=== PATIENT | female | born 1945 | race Caucasian/White ===

== ENCOUNTER → 2018-03-07 | Outpatient (CLI) | payer OTHER ==
[~2018-03-07] MED LIST: BACL10; CALCA400CH; CRINONE1.125 GM; CYAN500; CYAN500 PO; CYCL10; EPIN.3I IM; EX-LAX; Ester-C 500 MG1 EACH; Hair, Skin & N1 EACH; LEVSOD75; MULVITB&C PO; MULVITMINF PO; SENN187; SIME40L PO; SIME80CH; TIZANIDINE HCL2 MG; [UNRECOGNIZED DRUG - OTHER]
[2018-03-09 14:08] LABS: HPV 16 Negative (Negative); HPV 18 Negative (Negative); HPV OTHER HR TYPES Negative (Negative)
== END | disposition home or self-care (01) ==
LOC: LAB SHORT 15:29 → LAB 15:29
PROVIDERS: Nurse Practitioner Women's Health
DX: Z12.72 Encounter for screening for malignant neoplasm of vagina (principal); Z91.89 Other specified personal risk factors, not elsewhere classified
CPT/HCPCS: 87624; G0123

== ENCOUNTER → 2018-03-24 | Outpatient (CLI) | payer OTHER ==
[2018-03-24 14:44] LABS: Creatinine Urine 55.9 mg/dL (27.00-270.00); Protein, Urine Quantitative 6.5 mg/dL (0.0-11.9)
[2018-03-24 14:47] LABS: Microalbumin, Urine Quant. 5.49 mg/L (0.000-20.000)
[2018-03-28 17:06] LABS: METANEPH/CREAT RATIO 0.5 (0.0-1.0)
== END | disposition home or self-care (01) ==
LOC: LAB EV 08:15 → EDSTATUS 10:56
PROVIDERS: Internal Medicine Nephrology
DX: N18.2 Chronic kidney disease, stage 2 (mild) (principal); D63.1 Anemia in chronic kidney disease; R73.09 Other abnormal glucose; N25.81 Secondary hyperparathyroidism of renal origin; E55.9 Vitamin D deficiency, unspecified; E78.00 Pure hypercholesterolemia, unspecified; R76.9 Abnormal immunological finding in serum, unspecified; R94.5 Abnormal results of liver function studies; R94.6 Abnormal results of thyroid function studies
CPT/HCPCS: 81050; 82043; 82570; 83835; 84156

== ENCOUNTER → 2019-02-07 | Outpatient (CLI) | payer OTHER ==
[2019-02-07 16:41] LABS: Bilirubin, Urine Neg (Neg); Blood, Urine Neg (Neg); Glucose Qualitative, Urine Neg (Neg); Ketones, Urine Neg (Neg); Leukocyte Esterase, Urine Neg (Neg); Nitrite, Urine Neg (Neg); Protein, Urine Neg (Neg); Specific Gravity, Urine 1.015 (1.003-1.022); Urobilinogen, Urine NORM (Normal)
[2019-02-07 16:56] LABS: Appearance, Urine Clear (Clear); Color, Urine Yellow (P-Yellow)
== END | disposition home or self-care (01) ==
LOC: LAB EV 10:35 → LAB SHORT 10:35
PROVIDERS: Internal Medicine Nephrology
DX: N39.0 Urinary tract infection, site not specified (principal)
CPT/HCPCS: 81003; 87086

== ENCOUNTER → 2019-06-06 | Outpatient (CLI) | payer OTHER | END | disposition home or self-care (01) | LOC: LAB SHORT 18:51 → LAB EV 18:51 | DX: L03.011 Cellulitis of right finger (principal) | CPT/HCPCS: 87070; 87075; 87076; 87205 ==

== ENCOUNTER → 2020-03-10 | Outpatient (CLI) | payer OTHER ==
[2020-03-10 15:16] LABS: Albumin, Blood 3.8 g/dL (3.4-5.0); Anion Gap 7 mmol/L (6-16); Blood Urea Nitrogen 16 mg/dL (8-24); Bun/Creatinine Ratio 18.2 (12.0-20.0); CO2, Blood 28 mmol/L (21-32); Calcium, Blood 9.4 mg/dL (8.5-10.1); Chloride, Blood 103 mmol/L (98-108); Creatinine, Blood 0.88 mg/dL (0.40-1.00); Glomerular Filtration Rate >60 (60-); Glucose, Blood 106 mg/dL (70-99); Phosphorus, Blood 3.9 mg/dL (2.5-4.9); Potassium, Blood 4.4 mmol/L (3.5-5.5); Sodium, Blood 138 mmol/L (136-145)
[2020-03-10 17:46] LABS: Percent Saturation 20.7 % (15.0-50.0)
== END | disposition home or self-care (01) ==
LOC: LAB SHORT 14:45 → LAB 14:45
PROVIDERS: Internal Medicine Nephrology
DX: N18.31 Chronic kidney disease, stage 3a (principal); D63.1 Anemia in chronic kidney disease; D52.8 Other folate deficiency anemias; D50.9 Iron deficiency anemia, unspecified
CPT/HCPCS: 36415; 80069; 82728; 83540; 83550; 85018

== ENCOUNTER → 2020-09-28 | Outpatient (CLI) | payer OTHER | END | disposition home or self-care (01) | LOC: LAB SHORT 17:44 → LAB EV 17:44 | DX: M25.572 Pain in left ankle and joints of left foot (principal) | CPT/HCPCS: 87070; 87205 ==

== ENCOUNTER 2020-10-29 02:27 | Day surgery (SDC) | payer OTHER | END 2020-10-29 22:51 | disposition home or self-care (01) | LOC: WOUND 02:27 | DX: L97.322 Non-pressure chronic ulcer of left ankle with fat layer exposed (principal); L03.90 Cellulitis, unspecified; L84 Corns and callosities; I74.3 Embolism and thrombosis of arteries of the lower extremities; I73.89 Other specified peripheral vascular diseases; I83.813 Varicose veins of bilateral lower extremities with pain; I87.2 Venous insufficiency (chronic) (peripheral); R73.03 Prediabetes; F17.210 Nicotine dependence, cigarettes, uncomplicated; Z88.1 Allergy status to other antibiotic agents; Z88.5 Allergy status to narcotic agent; Z88.6 Allergy status to analgesic agent; Z88.8 Allergy status to other drugs, medicaments and biological substances; Z91.040 Latex allergy status; Z88.0 Allergy status to penicillin; Z88.2 Allergy status to sulfonamides | CPT/HCPCS: A9270; G0463 ==

== ENCOUNTER 2020-11-05 04:24 | Day surgery (SDC) | payer OTHER | END 2020-11-05 23:46 | disposition home or self-care (01) | LOC: WOUND 04:24 | DX: L97.322 Non-pressure chronic ulcer of left ankle with fat layer exposed (principal); L03.90 Cellulitis, unspecified; L84 Corns and callosities; I74.3 Embolism and thrombosis of arteries of the lower extremities; I73.89 Other specified peripheral vascular diseases; M25.579 Pain in unspecified ankle and joints of unspecified foot; I83.813 Varicose veins of bilateral lower extremities with pain; I87.2 Venous insufficiency (chronic) (peripheral) | CPT/HCPCS: A9270 ==

== ENCOUNTER 2020-11-14 00:57 | Day surgery (SDC) | payer OTHER | END 2020-11-14 23:06 | disposition home or self-care (01) | LOC: WOUND 00:57 | DX: L97.322 Non-pressure chronic ulcer of left ankle with fat layer exposed (principal); L03.90 Cellulitis, unspecified; L84 Corns and callosities; I74.3 Embolism and thrombosis of arteries of the lower extremities; I73.89 Other specified peripheral vascular diseases; M25.579 Pain in unspecified ankle and joints of unspecified foot; I83.813 Varicose veins of bilateral lower extremities with pain; I87.2 Venous insufficiency (chronic) (peripheral); Z88.2 Allergy status to sulfonamides; Z88.5 Allergy status to narcotic agent; Z88.0 Allergy status to penicillin; Z88.1 Allergy status to other antibiotic agents; Z88.8 Allergy status to other drugs, medicaments and biological substances | CPT/HCPCS: A9270 ==

== ENCOUNTER 2020-11-21 01:59 | Day surgery (SDC) | payer OTHER | END 2020-11-21 12:00 | disposition home or self-care (01) | LOC: WOUND 01:59 | DX: L97.322 Non-pressure chronic ulcer of left ankle with fat layer exposed (principal); L03.90 Cellulitis, unspecified; L84 Corns and callosities; I74.3 Embolism and thrombosis of arteries of the lower extremities; I73.89 Other specified peripheral vascular diseases; M25.579 Pain in unspecified ankle and joints of unspecified foot; I83.813 Varicose veins of bilateral lower extremities with pain; I87.2 Venous insufficiency (chronic) (peripheral); Z88.1 Allergy status to other antibiotic agents; Z88.6 Allergy status to analgesic agent; Z88.2 Allergy status to sulfonamides; Z88.5 Allergy status to narcotic agent; Z88.0 Allergy status to penicillin | CPT/HCPCS: A9270; G0463 ==

== ENCOUNTER 2020-12-03 03:21 | Day surgery (SDC) | payer OTHER | END 2020-12-03 12:00 | disposition home or self-care (01) | LOC: WOUND 03:21 | PROC: 0JBR0ZZ Excision of Left Foot Subcutaneous Tissue and Fascia, Open Approach (ICD-10-PCS; principal; 2020-12-03) | DX: L97.322 Non-pressure chronic ulcer of left ankle with fat layer exposed (principal); L03.90 Cellulitis, unspecified; L84 Corns and callosities; I74.3 Embolism and thrombosis of arteries of the lower extremities; I73.89 Other specified peripheral vascular diseases; I83.813 Varicose veins of bilateral lower extremities with pain; I87.2 Venous insufficiency (chronic) (peripheral) | CPT/HCPCS: A9270 ==

== ENCOUNTER 2020-12-10 04:53 | Day surgery (SDC) | payer OTHER | END 2020-12-10 22:44 | disposition home or self-care (01) | LOC: WOUND 04:53 | DX: L97.322 Non-pressure chronic ulcer of left ankle with fat layer exposed (principal); L03.90 Cellulitis, unspecified; L84 Corns and callosities; I74.3 Embolism and thrombosis of arteries of the lower extremities; I73.89 Other specified peripheral vascular diseases; M25.579 Pain in unspecified ankle and joints of unspecified foot; I83.813 Varicose veins of bilateral lower extremities with pain; I87.2 Venous insufficiency (chronic) (peripheral); Z88.1 Allergy status to other antibiotic agents; Z88.6 Allergy status to analgesic agent; Z88.0 Allergy status to penicillin; Z88.2 Allergy status to sulfonamides; Z91.040 Latex allergy status | CPT/HCPCS: A9270 ==

== ENCOUNTER 2021-01-17 13:33 | Emergency (ER) | payer OTHER ==
[~2021-01-17] VITALS: Ht 160 cm; Wt 51.3 kg
[2021-01-17 17:51] LABS: BASOPHILS ABSOLUTE AUTO 0.05 K/mm3 (0.00-0.23); BASOPHILS PERCENT AUTO 1 % (0-2); EOSINOPHILS ABSOLUTE AUTO 0.13 K/mm3 (0.00-0.68); EOSINOPHILS PERCENT AUTO 2 % (0-6); Hematocrit 38.9 % (33.0-51.0); Hemoglobin 13.1 g/dL (11.5-16.0); IMMATURE GRAN ABSOLUTE AUTO 0.01 K/mm3 (0.00-0.10); IMMATURE GRAN PERCENT AUTO 0 % (0-1); LYMPHOCYTES ABSOLUTE AUTO 2.47 K/mm3 (0.84-5.20); LYMPHOCYTES PERCENT AUTO 29 % (21-46); MONOCYTES ABSOLUTE AUTO 0.38 K/mm3 (0.16-1.47); MONOCYTES PERCENT AUTO 5 % (4-13); Mean Corpuscular HGB Conc 33.7 g/dL (31.5-36.5); Mean Corpuscular Volume 86 fL (80-100); Mean Platelet Volume 9.6 fL (9.1-12.4); NEUTROPHILS ABSOLUTE AUTO 5.39 K/mm3 (1.96-9.15); NEUTROPHILS PERCENT AUTO 64 % (41-73); Platelet Count 375 K/mm3 (150-400); RDW Coefficient Variation 12.8 % (11.7-14.2); RDW Standard Deviation 40.2 fL (35.1-46.3); Red Blood Cell Count 4.52 M/mm3 (3.80-5.20); White Blood Cell Count 8.43 K/mm3 (4.00-11.30)
[2021-01-17 18:16] LABS: Anion Gap 7 mmol/L (6-16); Blood Urea Nitrogen 9 mg/dL (8-24); Bun/Creatinine Ratio 14.9 (12.0-20.0); CO2, Blood 27 mmol/L (21-32); Calcium, Blood 9.9 mg/dL (8.5-10.1); Chloride, Blood 106 mmol/L (98-108); Glomerular Filtration Rate >60 (60-); Glucose, Blood 106 mg/dL (70-99); Potassium, Blood 3.7 mmol/L (3.5-5.5); Sodium, Blood 140 mmol/L (136-145)
[2021-01-17] MEDS ORDERED: CLIN300 PO (18:16)
== END 2021-01-17 18:48 | disposition home or self-care (01) ==
LOC: ER 13:33
PROVIDERS: Physician Assistant
DX: L97.329 Non-pressure chronic ulcer of left ankle with unspecified severity (principal); L03.116 Cellulitis of left lower limb; K21.9 Gastro-esophageal reflux disease without esophagitis; F17.210 Nicotine dependence, cigarettes, uncomplicated; Z88.6 Allergy status to analgesic agent; Z88.1 Allergy status to other antibiotic agents; Z91.040 Latex allergy status; Z88.5 Allergy status to narcotic agent; Z88.0 Allergy status to penicillin; Z88.2 Allergy status to sulfonamides; Z88.8 Allergy status to other drugs, medicaments and biological substances; Z79.899 Other long term (current) drug therapy
CPT/HCPCS: 36415; 80048; 85025; 99283; A9270

== ENCOUNTER 2021-03-31 01:49 | Day surgery (SDC) | payer OTHER ==
[~2021-03-31 01:49] MED LIST changes: +CLIN300 PO
--- NOTE | 2021-03-31 14:50 | NUR ---
SPOKE WITH PHARMACIST MEAGAN, TO DISCUSS ANTIBIOTIC REACTIONS. PER MEAGAN, THERE IS A < 4% OF CROSS REACTIVITY. DISCUSSED THIS WITH CARLA AND SHE IS WILLING TO PROCEED.
[2021-03-31] MEDS ORDERED: ERTAPENEM1 G6 IV (15:44)
== END 2021-03-31 15:35 | disposition home or self-care (01) ==
LOC: ATC 01:49
DX: N39.0 Urinary tract infection, site not specified (principal)
CPT/HCPCS: J1335

== ENCOUNTER 2021-04-01 04:18 | Day surgery (SDC) | payer OTHER ==
[~2021-04-01 04:18] MED LIST changes: +ERTAPENEM1 G6 IV
== END 2021-04-01 15:11 | disposition home or self-care (01) ==
LOC: ATC 04:18
DX: N39.0 Urinary tract infection, site not specified (principal); I12.9 Hypertensive chronic kidney disease with stage 1 through stage 4 chronic kidney disease, or unspecified chronic kidney disease; N18.2 Chronic kidney disease, stage 2 (mild); D63.1 Anemia in chronic kidney disease; N25.81 Secondary hyperparathyroidism of renal origin; J44.9 Chronic obstructive pulmonary disease, unspecified; F17.210 Nicotine dependence, cigarettes, uncomplicated
CPT/HCPCS: J1335

== ENCOUNTER 2021-04-02 00:14 | Day surgery (SDC) | payer OTHER ==
--- NOTE | 2021-04-02 14:59 | NUR ---
PT VERY PERSISTENT AND STRESSED, AGITATED THAT BP HIGH WHEN SHE COMES IN, WANTING TO RECLINE AND RELAX IN CHAIR AND RETOOK BP AND IT IS 136/69, PT STATES THAT SHE IS AGITATED AND STATES THAT THIS RN IS ARGUING WITH HER, THIS RN ONLY HAS INFORMED HER THAT SHE IS NOW RECLINED AND SHE APPEARS AGITATED AT THIS RN BECAUSE I WENT OVER ALL THE BP VITALS THROUGH HER HX HER AT [facility]. BLOOD PRESSURE WAVIERS SLIGHTLTY.
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
== END 2021-04-02 15:05 | disposition home or self-care (01) ==
LOC: ATC 00:14
DX: N39.0 Urinary tract infection, site not specified (principal)
CPT/HCPCS: J1335

== ENCOUNTER 2021-04-03 01:45 | Day surgery (SDC) | payer OTHER | END 2021-04-03 14:32 | disposition home or self-care (01) | LOC: ATC 01:45 | DX: N39.0 Urinary tract infection, site not specified (principal) | CPT/HCPCS: 96365; J1335 ==

== ENCOUNTER 2021-04-04 03:09 | Day surgery (SDC) | payer OTHER | END 2021-04-04 14:39 | disposition home or self-care (01) | LOC: ATC 03:09 | DX: I12.9 Hypertensive chronic kidney disease with stage 1 through stage 4 chronic kidney disease, or unspecified chronic kidney disease (principal); N18.2 Chronic kidney disease, stage 2 (mild); D63.1 Anemia in chronic kidney disease; N25.81 Secondary hyperparathyroidism of renal origin; E86.9 Volume depletion, unspecified; E78.00 Pure hypercholesterolemia, unspecified; E55.9 Vitamin D deficiency, unspecified; N20.0 Calculus of kidney; R73.09 Other abnormal glucose; F17.210 Nicotine dependence, cigarettes, uncomplicated; J44.9 Chronic obstructive pulmonary disease, unspecified; F17.200 Nicotine dependence, unspecified, uncomplicated; Z88.0 Allergy status to penicillin; Z88.2 Allergy status to sulfonamides; Z88.5 Allergy status to narcotic agent; Z88.8 Allergy status to other drugs, medicaments and biological substances; Z91.040 Latex allergy status | CPT/HCPCS: J1335 ==

== ENCOUNTER → 2021-04-10 | Outpatient (CLI) | payer OTHER | END | disposition home or self-care (01) | LOC: LAB SHORT 13:30 | DX: N39.0 Urinary tract infection, site not specified (principal) | CPT/HCPCS: 87077; 87086; 87186 ==

== ENCOUNTER 2021-04-28 02:05 | Day surgery (SDC) | payer OTHER ==
--- NOTE | 2021-04-28 11:25 | NUR ---
Spoke with Dr. Bravo as pt is requesting a dose increase from 500 mg to 1 gram of IV fortaz daily for the 5 days of ordered therapy[address] Bravo gave verbal orders to increase to 1 gram IV fortaz daily. Pharmacy notified and an additional 500 mg IV fortaz hung for a total of 1 gram today.
== END 2021-04-28 11:43 | disposition home or self-care (01) ==
LOC: ATC 02:05
DX: N39.0 Urinary tract infection, site not specified (principal); I12.9 Hypertensive chronic kidney disease with stage 1 through stage 4 chronic kidney disease, or unspecified chronic kidney disease; N18.2 Chronic kidney disease, stage 2 (mild); D63.1 Anemia in chronic kidney disease; J44.9 Chronic obstructive pulmonary disease, unspecified
CPT/HCPCS: J1335

== ENCOUNTER 2021-04-29 04:49 | Day surgery (SDC) | payer OTHER | END 2021-04-29 11:38 | disposition home or self-care (01) | LOC: ATC 04:49 | DX: N39.0 Urinary tract infection, site not specified (principal) | CPT/HCPCS: 96365; J1335 ==

== ENCOUNTER 2021-04-30 01:19 | Day surgery (SDC) | payer OTHER | END 2021-04-30 11:27 | disposition home or self-care (01) | LOC: ATC 01:19 | DX: N39.0 Urinary tract infection, site not specified (principal) | CPT/HCPCS: 96365; J1335 ==

== ENCOUNTER 2021-05-01 01:14 | Day surgery (SDC) | payer OTHER ==
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
== END 2021-05-01 11:20 | disposition home or self-care (01) ==
LOC: ATC 01:14
DX: N39.0 Urinary tract infection, site not specified (principal)
CPT/HCPCS: 96365; J1335

== ENCOUNTER 2021-05-02 02:49 | Day surgery (SDC) | payer OTHER | END 2021-05-02 11:37 | disposition home or self-care (01) | LOC: ATC 02:49 | DX: N39.0 Urinary tract infection, site not specified (principal); I12.9 Hypertensive chronic kidney disease with stage 1 through stage 4 chronic kidney disease, or unspecified chronic kidney disease; N18.2 Chronic kidney disease, stage 2 (mild); D63.1 Anemia in chronic kidney disease; J44.9 Chronic obstructive pulmonary disease, unspecified; F17.200 Nicotine dependence, unspecified, uncomplicated; Z88.5 Allergy status to narcotic agent; Z88.0 Allergy status to penicillin; Z88.2 Allergy status to sulfonamides; Z88.6 Allergy status to analgesic agent; Z88.1 Allergy status to other antibiotic agents; Z91.040 Latex allergy status | CPT/HCPCS: 96365; J1335 ==

== ENCOUNTER → 2021-07-15 | Outpatient (CLI) | payer OTHER | END | disposition home or self-care (01) | LOC: LAB 13:55 → LAB SHORT 13:55 | DX: I87.332 Chronic venous hypertension (idiopathic) with ulcer and inflammation of left lower extremity (principal); L97.322 Non-pressure chronic ulcer of left ankle with fat layer exposed | CPT/HCPCS: 87070; 87075; 87077; 87186; 87205 ==

== ENCOUNTER 2021-09-06 10:03 | Day surgery (SDC) | payer OTHER ==
[2021-09-06] MEDS ORDERED: SYNTHROID50 MC1 (10:46)
[2021-09-06] MEDS ORDERED: CETIRIZINE HCL PO (10:48)
[2021-09-06] MEDS ORDERED: NITROGLYCERIN0.4 M3 SL (10:49)
== END 2021-09-06 10:59 | disposition home or self-care (01) ==
LOC: ATC 10:03
DX: L03.90 Cellulitis, unspecified (principal); J45.41 Moderate persistent asthma with (acute) exacerbation; C44.91 Basal cell carcinoma of skin, unspecified; Z91.041 Radiographic dye allergy status; Z88.0 Allergy status to penicillin; Z88.1 Allergy status to other antibiotic agents; Z88.5 Allergy status to narcotic agent; Z88.8 Allergy status to other drugs, medicaments and biological substances
CPT/HCPCS: 96365; J1335

== ENCOUNTER 2021-09-07 10:17 | Day surgery (SDC) | payer OTHER ==
[~2021-09-07 10:17] MED LIST changes: +CETIRIZINE HCL PO; +NITROGLYCERIN0.4 M3 SL; +SYNTHROID50 MC1
== END 2021-09-07 10:55 | disposition home or self-care (01) ==
LOC: ATC 10:17
DX: L03.90 Cellulitis, unspecified (principal)
CPT/HCPCS: 96365; J1335

== ENCOUNTER 2021-09-08 05:56 | Day surgery (SDC) | payer OTHER | END 2021-09-08 11:03 | disposition home or self-care (01) | LOC: ATC 05:56 | DX: L03.116 Cellulitis of left lower limb (principal); Z88.1 Allergy status to other antibiotic agents; Z88.0 Allergy status to penicillin; Z88.5 Allergy status to narcotic agent; Z88.8 Allergy status to other drugs, medicaments and biological substances; J45.41 Moderate persistent asthma with (acute) exacerbation; C44.91 Basal cell carcinoma of skin, unspecified; L40.8 Other psoriasis; F41.1 Generalized anxiety disorder; I47.1 Supraventricular tachycardia; I83.90 Asymptomatic varicose veins of unspecified lower extremity | CPT/HCPCS: 96365; J1335 ==

== ENCOUNTER 2021-09-09 02:45 | Day surgery (SDC) | payer OTHER | END 2021-09-09 11:13 | disposition home or self-care (01) | LOC: ATC 02:45 | DX: L03.90 Cellulitis, unspecified (principal) | CPT/HCPCS: 96365; J1335 ==

== ENCOUNTER 2021-09-10 01:30 | Day surgery (SDC) | payer OTHER | END 2021-09-10 11:13 | disposition home or self-care (01) | LOC: ATC 01:30 | DX: L03.116 Cellulitis of left lower limb (principal); J45.40 Moderate persistent asthma, uncomplicated; Z88.0 Allergy status to penicillin; Z88.1 Allergy status to other antibiotic agents; Z88.5 Allergy status to narcotic agent; Z91.018 Allergy to other foods; Z91.048 Other nonmedicinal substance allergy status | CPT/HCPCS: 96365; J1335 ==

== ENCOUNTER 2021-09-11 01:49 | Day surgery (SDC) | payer OTHER | END 2021-09-11 11:15 | disposition home or self-care (01) | LOC: ATC 01:49 | DX: L03.90 Cellulitis, unspecified (principal) | CPT/HCPCS: 96365; J1335 ==

== ENCOUNTER 2021-09-12 01:04 | Day surgery (SDC) | payer OTHER | END 2021-09-12 11:00 | disposition home or self-care (01) | LOC: ATC 01:04 | DX: L03.90 Cellulitis, unspecified (principal) | CPT/HCPCS: 96365; J1335 ==

== ENCOUNTER 2021-09-13 00:29 | Day surgery (SDC) | payer OTHER | END 2021-09-13 11:01 | disposition home or self-care (01) | LOC: ATC 00:29 | DX: L03.116 Cellulitis of left lower limb (principal); J45.41 Moderate persistent asthma with (acute) exacerbation; C44.91 Basal cell carcinoma of skin, unspecified; L40.8 Other psoriasis; F41.1 Generalized anxiety disorder; I47.1 Supraventricular tachycardia; I83.90 Asymptomatic varicose veins of unspecified lower extremity | CPT/HCPCS: 96365; J1335 ==

== ENCOUNTER 2021-09-14 10:19 | Day surgery (SDC) | payer OTHER ==
[2021-09-15] MEDS ORDERED: HYDCOR2.5C PR (12:19)
== END 2021-09-14 11:00 | disposition home or self-care (01) ==
LOC: ATC 10:19
DX: L03.116 Cellulitis of left lower limb (principal); J45.40 Moderate persistent asthma, uncomplicated; L40.8 Other psoriasis; F41.1 Generalized anxiety disorder; I47.1 Supraventricular tachycardia; Z88.1 Allergy status to other antibiotic agents; Z88.5 Allergy status to narcotic agent; Z88.0 Allergy status to penicillin
CPT/HCPCS: 96365; J1335

== ENCOUNTER 2021-09-15 01:47 | Day surgery (SDC) | payer OTHER ==
[2021-09-15] MEDS ORDERED: HYDCOR2.5C PR (12:19)
== END 2021-09-15 11:42 | disposition home or self-care (01) ==
LOC: ATC 01:47
DX: L03.90 Cellulitis, unspecified (principal)
CPT/HCPCS: J1335

== ENCOUNTER 2021-09-16 00:52 | Day surgery (SDC) | payer OTHER ==
[~2021-09-16 00:52] MED LIST changes: +HYDCOR2.5C PR
--- NOTE | 2021-09-16 13:07 | NUR ---
PT WITH RED RASH ON ARMS AND TRUNK. VERY ITCHY. ENCOURAGED PT TO TAKE A BENADRYL PRIOR TO BED TO HELP WITH ITCHING.
== END 2021-09-16 12:15 | disposition home or self-care (01) ==
LOC: ATC 00:52
DX: L03.90 Cellulitis, unspecified (principal); J45.40 Moderate persistent asthma, uncomplicated; C44.91 Basal cell carcinoma of skin, unspecified; L40.8 Other psoriasis; F41.1 Generalized anxiety disorder; I83.90 Asymptomatic varicose veins of unspecified lower extremity; Z88.1 Allergy status to other antibiotic agents; Z88.5 Allergy status to narcotic agent; Z88.0 Allergy status to penicillin; Z88.8 Allergy status to other drugs, medicaments and biological substances; Z91.018 Allergy to other foods
CPT/HCPCS: 96365; J1335

== ENCOUNTER 2021-09-17 10:14 | Day surgery (SDC) | payer OTHER | END 2021-09-17 10:58 | disposition home or self-care (01) | LOC: ATC 10:14 | DX: L03.116 Cellulitis of left lower limb (principal); L03.90 Cellulitis, unspecified; F41.1 Generalized anxiety disorder; C44.91 Basal cell carcinoma of skin, unspecified; J45.41 Moderate persistent asthma with (acute) exacerbation; L40.8 Other psoriasis; I47.1 Supraventricular tachycardia; I83.90 Asymptomatic varicose veins of unspecified lower extremity | CPT/HCPCS: 96365; J1335 ==

== ENCOUNTER 2021-09-19 02:13 | Day surgery (SDC) | payer OTHER | END 2021-09-19 11:02 | disposition home or self-care (01) | LOC: ATC 02:13 | DX: L03.116 Cellulitis of left lower limb (principal); J45.41 Moderate persistent asthma with (acute) exacerbation; C44.91 Basal cell carcinoma of skin, unspecified; L40.8 Other psoriasis; I47.1 Supraventricular tachycardia; F41.1 Generalized anxiety disorder; Z88.1 Allergy status to other antibiotic agents; Z88.0 Allergy status to penicillin; Z88.2 Allergy status to sulfonamides; Z88.8 Allergy status to other drugs, medicaments and biological substances; I83.90 Asymptomatic varicose veins of unspecified lower extremity | CPT/HCPCS: 96365; J1335 ==

== ENCOUNTER → 2021-11-13 | Outpatient (CLI) | payer OTHER ==
[2021-11-13 15:40] LABS: BASOPHILS ABSOLUTE AUTO 0.09 K/mm3 (0.00-0.23); BASOPHILS PERCENT AUTO 1 % (0-2); EOSINOPHILS ABSOLUTE AUTO 0.28 K/mm3 (0.00-0.68); EOSINOPHILS PERCENT AUTO 4 % (0-6); Hematocrit 38.4 % (33.0-51.0); IMMATURE GRAN ABSOLUTE AUTO 0.02 K/mm3 (0.00-0.10); IMMATURE GRAN PERCENT AUTO 0 % (0-1); LYMPHOCYTES ABSOLUTE AUTO 1.92 K/mm3 (0.84-5.20); LYMPHOCYTES PERCENT AUTO 26 % (21-46); MONOCYTES ABSOLUTE AUTO 0.43 K/mm3 (0.16-1.47); MONOCYTES PERCENT AUTO 6 % (4-13); Mean Corpuscular HGB 29.3 pg (26.0-34.0); Mean Corpuscular HGB Conc 33.9 g/dL (31.5-36.5); Mean Corpuscular Volume 87 fL (80-100); Mean Platelet Volume 9.3 fL (9.1-12.4); NEUTROPHILS ABSOLUTE AUTO 4.69 K/mm3 (1.96-9.15); NEUTROPHILS PERCENT AUTO 63 % (41-73); Platelet Count 324 K/mm3 (150-400); RDW Coefficient Variation 14.4 % (11.7-14.2); RDW Standard Deviation 45.9 fL (35.1-46.3); Red Blood Cell Count 4.43 M/mm3 (3.80-5.20); White Blood Cell Count 7.43 K/mm3 (4.00-11.30)
[2021-11-13 15:54] LABS: Albumin, Blood 3.9 g/dL (3.4-5.0); Bilirubin, Total 0.3 mg/dL (0.1-1.0); Bun/Creatinine Ratio 23.4 (12.0-20.0); Calcium, Blood 9.8 mg/dL (8.5-10.1); Creatinine, Blood 0.64 mg/dL (0.40-1.00); Globulin, Blood 3.8 g/dL (2.2-4.0); Potassium, Blood 3.7 mmol/L (3.5-5.5); Total Protein, Blood 7.7 g/dL (6.4-8.2)
== END | disposition home or self-care (01) ==
LOC: LAB 15:34 → LAB SHORT 15:34
PROVIDERS: Family Medicine
DX: M35.9 Systemic involvement of connective tissue, unspecified (principal)
CPT/HCPCS: 80053; 85025; 86430

== ENCOUNTER → 2022-01-14 | Outpatient (CLI) | payer OTHER | LOC: LAB SHORT 13:15 → LAB 13:15 | DX: L08.0 Pyoderma (principal) | CPT/HCPCS: 87070; 87077; 87147; 87186; 87205 ==

== ENCOUNTER → 2022-01-16 | Outpatient (CLI) | payer OTHER | LOC: LAB 11:32 → LAB SHORT 11:32 | DX: L20.9 Atopic dermatitis, unspecified (principal); Z79.899 Other long term (current) drug therapy | CPT/HCPCS: 87177; 87209 ==

== ENCOUNTER → 2022-02-02 | Outpatient (CLI) | payer OTHER | END | disposition home or self-care (01) | LOC: LAB 15:34 → LAB SHORT 15:34 | DX: L08.0 Pyoderma (principal) | CPT/HCPCS: 87070; 87077; 87147; 87186; 87205 ==

== ENCOUNTER 2022-02-18 01:01 | Day surgery (SDC) | payer OTHER ==
[2022-02-18] MEDS ORDERED: ERTAPENEM IV (14:48)
[2022-02-18] MEDS ORDERED: EUTHYROX50 MC1 PO (15:10)
== END 2022-02-18 15:40 | disposition home or self-care (01) ==
LOC: ATC 01:01
DX: L98.499 Non-pressure chronic ulcer of skin of other sites with unspecified severity (principal); J45.41 Moderate persistent asthma with (acute) exacerbation; L03.90 Cellulitis, unspecified
CPT/HCPCS: 96365; J1335

== ENCOUNTER 2022-02-22 01:27 | Day surgery (SDC) | payer OTHER ==
[~2022-02-22 01:27] MED LIST changes: +ERTAPENEM IV; +EUTHYROX50 MC1 PO
== END 2022-02-22 14:43 | disposition home or self-care (01) ==
LOC: ATC 01:27
DX: L98.499 Non-pressure chronic ulcer of skin of other sites with unspecified severity (principal); L08.0 Pyoderma; L03.90 Cellulitis, unspecified; C44.91 Basal cell carcinoma of skin, unspecified; F41.1 Generalized anxiety disorder; I47.1 Supraventricular tachycardia; I83.90 Asymptomatic varicose veins of unspecified lower extremity
CPT/HCPCS: 96365; J1335

== ENCOUNTER 2022-02-23 00:46 | Day surgery (SDC) | payer OTHER | END 2022-02-23 14:54 | disposition home or self-care (01) | LOC: ATC 00:46 | DX: L98.499 Non-pressure chronic ulcer of skin of other sites with unspecified severity (principal); L08.0 Pyoderma; J45.41 Moderate persistent asthma with (acute) exacerbation; L03.116 Cellulitis of left lower limb; C44.91 Basal cell carcinoma of skin, unspecified; L40.8 Other psoriasis; I47.1 Supraventricular tachycardia; I83.90 Asymptomatic varicose veins of unspecified lower extremity | CPT/HCPCS: 96365; J1335 ==

== ENCOUNTER 2022-02-24 00:23 | Day surgery (SDC) | payer OTHER | END 2022-02-24 15:09 | disposition home or self-care (01) | LOC: ATC 00:23 | DX: L98.499 Non-pressure chronic ulcer of skin of other sites with unspecified severity (principal); J45.40 Moderate persistent asthma, uncomplicated; Z88.0 Allergy status to penicillin; Z88.1 Allergy status to other antibiotic agents; Z88.8 Allergy status to other drugs, medicaments and biological substances; Z88.5 Allergy status to narcotic agent; Z91.018 Allergy to other foods; Z91.048 Other nonmedicinal substance allergy status | CPT/HCPCS: 96374; J1335 ==

== ENCOUNTER 2022-02-25 02:58 | Day surgery (SDC) | payer OTHER | END 2022-02-25 14:38 | disposition home or self-care (01) | LOC: ATC 02:58 | DX: L98.499 Non-pressure chronic ulcer of skin of other sites with unspecified severity (principal); L08.0 Pyoderma | CPT/HCPCS: 96365; J1335 ==

== ENCOUNTER 2022-02-26 00:41 | Day surgery (SDC) | payer OTHER | END 2022-02-26 15:25 | disposition home or self-care (01) | LOC: ATC 00:41 | DX: L08.0 Pyoderma (principal); L98.499 Non-pressure chronic ulcer of skin of other sites with unspecified severity | CPT/HCPCS: 96365; J1335 ==

== ENCOUNTER 2022-02-27 02:16 | Day surgery (SDC) | payer OTHER | END 2022-02-27 14:51 | disposition home or self-care (01) | LOC: ATC 02:16 | DX: L98.499 Non-pressure chronic ulcer of skin of other sites with unspecified severity (principal); L08.0 Pyoderma; L03.90 Cellulitis, unspecified; J45.40 Moderate persistent asthma, uncomplicated; C44.91 Basal cell carcinoma of skin, unspecified; L40.8 Other psoriasis; I47.1 Supraventricular tachycardia; F41.1 Generalized anxiety disorder; I83.90 Asymptomatic varicose veins of unspecified lower extremity; Z88.0 Allergy status to penicillin; Z88.1 Allergy status to other antibiotic agents; Z88.5 Allergy status to narcotic agent; Z88.8 Allergy status to other drugs, medicaments and biological substances; Z79.899 Other long term (current) drug therapy | CPT/HCPCS: J1335 ==

== ENCOUNTER 2022-02-28 00:27 | Day surgery (SDC) | payer OTHER | END 2022-02-28 10:56 | disposition home or self-care (01) | LOC: ATC 00:27 | DX: L98.499 Non-pressure chronic ulcer of skin of other sites with unspecified severity (principal); J45.41 Moderate persistent asthma with (acute) exacerbation; L03.90 Cellulitis, unspecified; C44.91 Basal cell carcinoma of skin, unspecified; I47.1 Supraventricular tachycardia; F41.1 Generalized anxiety disorder; L08.0 Pyoderma | CPT/HCPCS: J1335 ==

== ENCOUNTER 2022-03-01 00:03 | Day surgery (SDC) | payer OTHER | END 2022-03-01 10:40 | disposition home or self-care (01) | LOC: ATC 00:03 | DX: L98.499 Non-pressure chronic ulcer of skin of other sites with unspecified severity (principal); L08.0 Pyoderma; J45.41 Moderate persistent asthma with (acute) exacerbation; L03.90 Cellulitis, unspecified; C44.91 Basal cell carcinoma of skin, unspecified; L40.8 Other psoriasis; F41.1 Generalized anxiety disorder; I47.1 Supraventricular tachycardia; I83.90 Asymptomatic varicose veins of unspecified lower extremity | CPT/HCPCS: J1335 ==

== ENCOUNTER 2022-03-02 02:12 | Day surgery (SDC) | payer OTHER | END 2022-03-02 14:40 | disposition home or self-care (01) | LOC: ATC 02:12 | DX: L08.0 Pyoderma (principal); L98.499 Non-pressure chronic ulcer of skin of other sites with unspecified severity; J45.41 Moderate persistent asthma with (acute) exacerbation; L03.90 Cellulitis, unspecified; C44.91 Basal cell carcinoma of skin, unspecified; L40.8 Other psoriasis; F41.1 Generalized anxiety disorder; I47.1 Supraventricular tachycardia; I83.90 Asymptomatic varicose veins of unspecified lower extremity | CPT/HCPCS: J1335 ==

== ENCOUNTER → 2022-03-24 | Outpatient (CLI) | payer OTHER | LOC: LAB SHORT 15:05 → LAB 15:05 | DX: L08.0 Pyoderma (principal) | CPT/HCPCS: 87070; 87147; 87205 ==

== ENCOUNTER → 2022-05-04 | Outpatient (CLI) | payer OTHER ==
[2022-05-04 18:00] LABS: Protein, Urine Quantitative 8.6 mg/dL (0.0-11.9)
[2022-05-04 18:03] LABS: Microalbumin, Urine Quant. 8.74 mg/L (0.000-20.000)
[2022-05-04 18:10] LABS: Creatinine, Urine Random 71.6 mg/dL (27.00-270.00); Microalb/Creat Ratio UR, Rand 12.584 mg/g (0.000-30.000); Microalbumin, Random Urine 9.01 mg/L (0.000-20.000)
== END | disposition home or self-care (01) ==
LOC: LAB SHORT 09:30
PROVIDERS: Internal Medicine Nephrology
DX: N18.30 Chronic kidney disease, stage 3 unspecified (principal); D75.1 Secondary polycythemia; E87.1 Hypo-osmolality and hyponatremia; R31.9 Hematuria, unspecified; R76.9 Abnormal immunological finding in serum, unspecified; R94.5 Abnormal results of liver function studies; R94.6 Abnormal results of thyroid function studies
CPT/HCPCS: 82043; 82570; 84156

== ENCOUNTER → 2022-05-06 | Outpatient (CLI) | payer OTHER | END | disposition home or self-care (01) | LOC: LAB SHORT 08:09 → PLD 08:09 | DX: L08.89 Other specified local infections of the skin and subcutaneous tissue (principal) | CPT/HCPCS: 88305; 88312 ==

== ENCOUNTER → 2022-09-16 | Outpatient (CLI) | payer OTHER | END | disposition home or self-care (01) | LOC: LAB 16:31 → LAB SHORT 16:31 | DX: R30.0 Dysuria (principal) | CPT/HCPCS: 87086 ==

== ENCOUNTER → 2022-10-08 | Outpatient (CLI) | payer OTHER | LOC: LAB SHORT 09:30 → LAB 09:30 | DX: L08.9 Local infection of the skin and subcutaneous tissue, unspecified (principal); L30.9 Dermatitis, unspecified; R60.0 Localized edema | CPT/HCPCS: 87070; 87077; 87147; 87186; 87205 ==

== ENCOUNTER → 2022-10-21 | Outpatient (CLI) | payer OTHER | LOC: LAB 17:21 → LAB SHORT 17:21 | DX: L08.89 Other specified local infections of the skin and subcutaneous tissue (principal) | CPT/HCPCS: 87070; 87147; 87205 ==

== ENCOUNTER 2023-03-25 01:46 | Day surgery (SDC) | payer OTHER ==
[2023-03-25] MEDS ORDERED: CefTRIAXone Sodium 1,000 MG in NS 50 ML IV SCH (06:00)
[2023-03-25 13:30] VITALS: BP 137/68
[2023-03-25] MEDS ORDERED: CEFTRIAXON1 GM/50 M1 IV (15:02)
== END 2023-03-25 13:57 | disposition home or self-care (01) ==
LOC: ATC 01:46
DX: A49.1 Streptococcal infection, unspecified site (principal); K21.9 Gastro-esophageal reflux disease without esophagitis; E03.9 Hypothyroidism, unspecified
CPT/HCPCS: 96365; J0696

== ENCOUNTER 2023-03-26 00:33 | Day surgery (SDC) | payer OTHER ==
[~2023-03-26 00:33] MED LIST changes: +CEFTRIAXON1 GM/50 M1 IV
[2023-03-26] MEDS ORDERED: CefTRIAXone Sodium 1,000 MG in NS 50 ML IV SCH (06:00)
[2023-03-26 13:26] VITALS: BP 118/89
== END 2023-03-26 13:52 | disposition home or self-care (01) ==
LOC: ATC 00:33
DX: A49.1 Streptococcal infection, unspecified site (principal); L97.929 Non-pressure chronic ulcer of unspecified part of left lower leg with unspecified severity; L97.919 Non-pressure chronic ulcer of unspecified part of right lower leg with unspecified severity
CPT/HCPCS: 96365; J0696

== ENCOUNTER 2023-03-27 01:05 | Day surgery (SDC) | payer OTHER ==
[2023-03-27] MEDS ORDERED: CefTRIAXone Sodium 1,000 MG in NS 50 ML IV SCH (06:00)
== END 2023-03-27 11:36 | disposition home or self-care (01) ==
LOC: ATC 01:05
DX: A49.1 Streptococcal infection, unspecified site (principal); L97.919 Non-pressure chronic ulcer of unspecified part of right lower leg with unspecified severity; L97.929 Non-pressure chronic ulcer of unspecified part of left lower leg with unspecified severity
CPT/HCPCS: 96365; J0696

== ENCOUNTER 2023-03-28 10:20 | Day surgery (SDC) | payer OTHER ==
[~2023-03-28 10:20] MED LIST changes: +CefTRIAXone Sodium 1,000 MG in NS 50 ML IV SCH
== END 2023-03-28 10:51 | disposition home or self-care (01) ==
LOC: ATC 10:20
DX: A49.1 Streptococcal infection, unspecified site (principal); L97.929 Non-pressure chronic ulcer of unspecified part of left lower leg with unspecified severity; L97.919 Non-pressure chronic ulcer of unspecified part of right lower leg with unspecified severity
CPT/HCPCS: 96365; J0696

== ENCOUNTER 2023-03-29 00:35 | Day surgery (SDC) | payer OTHER ==
[~2023-03-29 00:35] MED LIST changes: -CefTRIAXone Sodium 1,000 MG in NS 50 ML IV SCH
[2023-03-29] MEDS ORDERED: CefTRIAXone Sodium 1,000 MG in NS 50 ML IV SCH (07:00)
[2023-03-29 13:31] VITALS: BP 140/90
== END 2023-03-29 13:58 | disposition home or self-care (01) ==
LOC: ATC 00:35
DX: A49.1 Streptococcal infection, unspecified site (principal); S81.802D Unspecified open wound, left lower leg, subsequent encounter; K21.9 Gastro-esophageal reflux disease without esophagitis; E78.2 Mixed hyperlipidemia; E03.9 Hypothyroidism, unspecified; F32.9 Major depressive disorder, single episode, unspecified; K58.0 Irritable bowel syndrome with diarrhea; X58.XXXD Exposure to other specified factors, subsequent encounter
CPT/HCPCS: 96365; J0696

== ENCOUNTER 2023-03-30 02:05 | Day surgery (SDC) | payer OTHER ==
[2023-03-30] MEDS ORDERED: CefTRIAXone Sodium 1,000 MG in NS 50 ML IV SCH (06:00)
[2023-03-30 13:45] VITALS: BP 120/60
== END 2023-03-30 14:10 | disposition home or self-care (01) ==
LOC: ATC 02:05
DX: A49.1 Streptococcal infection, unspecified site (principal); L97.919 Non-pressure chronic ulcer of unspecified part of right lower leg with unspecified severity; L97.929 Non-pressure chronic ulcer of unspecified part of left lower leg with unspecified severity
CPT/HCPCS: 96365; J0696

== ENCOUNTER 2023-03-31 00:02 | Day surgery (SDC) | payer OTHER ==
[2023-03-31] MEDS ORDERED: CefTRIAXone Sodium 1,000 MG in NS 50 ML IV SCH (06:00)
[2023-03-31 15:22] VITALS: BP 146/90
== END 2023-03-31 15:51 | disposition home or self-care (01) ==
LOC: ATC 00:02
DX: A49.1 Streptococcal infection, unspecified site (principal); L30.9 Dermatitis, unspecified; E03.9 Hypothyroidism, unspecified; K21.9 Gastro-esophageal reflux disease without esophagitis; E78.5 Hyperlipidemia, unspecified; F32.9 Major depressive disorder, single episode, unspecified
CPT/HCPCS: 87070; 87205; 96365; J0696

== ENCOUNTER → 2023-06-12 | Outpatient (CLI) | payer OTHER ==
[2023-06-14 19:40] LABS: HIV 1,2 COMBO ANTIGEN/ANTIBODY Negative (Negative)
[2023-06-15 12:42] LABS: HCV QNT BY NAAT (IU/ML) Not Detected; HCV QNT BY NAAT (LOG IU/ML) Not Detected; HCV QNT BY NAAT INTERP Not Detected (Not Detected)
== END ==
LOC: LAB 19:13 → LAB SHORT 19:13
PROVIDERS: Emergency Medicine
DX: Z20.9 Contact with and (suspected) exposure to unspecified communicable disease (principal)
CPT/HCPCS: 87389; 87522

== ENCOUNTER → 2023-08-04 | Outpatient (CLI) | payer OTHER | LOC: LAB SHORT 15:26 → LAB 15:26 | DX: I87.2 Venous insufficiency (chronic) (peripheral) (principal) | CPT/HCPCS: 87070; 87077; 87186; 87205 ==

== ENCOUNTER → 2023-09-06 | Outpatient (CLI) | payer OTHER ==
[2023-09-09 09:21] LABS: HEPATITIS B SURFACE ANTIBODY <3.10 IU/L
[2023-09-09 11:21] LABS: HEPATITIS B SURFACE ANTIGEN Negative (Negative)
[2023-09-09 11:29] LABS: HIV 1,2 COMBO ANTIGEN/ANTIBODY Negative (Negative)
[2023-09-09 17:16] LABS: HCV QNT BY NAAT (IU/ML) Not Detected; HCV QNT BY NAAT (LOG IU/ML) Not Detected; HCV QNT BY NAAT INTERP Not Detected (Not Detected)
== END | disposition home or self-care (01) ==
LOC: LAB 18:11 → LAB SHORT 18:11
PROVIDERS: Chiropractor
DX: Z77.21 Contact with and (suspected) exposure to potentially hazardous body fluids (principal)
CPT/HCPCS: 84460; 87340; 87389; 87522

== ENCOUNTER → 2023-09-07 | Outpatient (CLI) | payer OTHER | LOC: LAB SHORT 15:30 → LAB 15:30 | DX: I87.2 Venous insufficiency (chronic) (peripheral) (principal) | CPT/HCPCS: 87070; 87075; 87077; 87147; 87186; 87205 ==

== ENCOUNTER → 2024-12-04 | Outpatient (CLI) | payer OTHER | LOC: LAB SHORT 13:18 → LAB 13:18 | DX: L08.9 Local infection of the skin and subcutaneous tissue, unspecified (principal) | CPT/HCPCS: 87070; 87077; 87186; 87205 ==